=== PATIENT | female | born 1980 | race Caucasian/White ===

== ENCOUNTER 2017-11-02 10:06 | Outpatient (CLI) | payer OTHER ==
[2017-11-02 11:22] LABS: Hemoglobin 14.1 g/dL (12.0-16.0); Mean Corpuscular HGB CONC 34.8 g/dL (32.0-36.0); Mean Corpuscular Hemoglobin 32.4 pg (27.0-31.0); Mean Corpuscular Volume 93.1 fL (78.0-98.0); Mean Platelet Volume 7.4 fL (7.4-10.4); Platelet Count 193 thou/uL (130-400); RBC Distribution Width 11.5 % (11.5-14.5); Red Blood Cell (RBC) Count 4.36 mill/uL (4.20-5.40); White Blood Cell (WBC) Count 5.3 thou/uL (4.8-10.8)
[2017-11-02 11:28] LABS: BHCG - Serum Negative (NEGATIVE); Pregs Control Background? CLEAR/WHITE (CLR/WHITE); Pregs Control Bar Appear? YES (CONTROL BAR)
== END 2017-11-02 10:07 | disposition home or self-care (01) ==
LOC: LABBT 10:06
PROVIDERS: ATTEND Obstetrics & Gynecology
DX: Z01.812 Encounter for preprocedural laboratory examination (principal); N92.0 Excessive and frequent menstruation with regular cycle; N94.6 Dysmenorrhea, unspecified
CPT/HCPCS: 84703; 85027; 86850; 86900; 86901

== ENCOUNTER 2017-11-06 10:48 | Inpatient (IN) | payer OTHER ==
[2017-11-02 10:18] VITALS: BMI 34.4
--- NOTE | 2017-11-05 14:31 | HP ---
DATE OF ADMISSION: 11/06/2017 PRESENTING COMPLAINT: Dysmenorrhea, menorrhagia, anemia, leading to difficulty with work. Referred by [facility]. SCHEDULED PROCEDURE: Total laparoscopic hysterectomy, bilateral salpingectomy. HISTORY OF PRESENT ILLNESS: Ms. Matt is a 36-year-old 2, para 2, status post x1 for twins with eclampsia, vaginal delivery x1, with largest baby 8 pounds, 5 ounces via vaginal deliv alyssa. She has a long history of menorrhagia with menstrual cycles lasting up to 14 days, using 18 pad s per 24 hours during the heavy days. 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 Negative Pap smear per [facility]. Denies history of STDs. She has also had an ovarian cyst removed. PAST MEDICAL HISTORY: Hypertension, not on medications. PAST SURGICAL HISTORY: Tubal ligation and . ALLERGIES: MORPHINE. MEDICATIONS: OCPs and Tylenol #3. SOCIAL HISTORY: Positive for tobacco use, denies alcohol use or illicit drug use. FAMILY HISTORY/REVIEW OF SYSTEMS: Noncontributory. PHYSICAL EXAMINATION: GENERAL: White female. VITAL SIGNS: 5 feet 2, 240, BMI 43, blood pressure 118/80. HEENT: Within normal limits. LUNGS: Clear to auscultation bilaterally. HEART: Regular rate and rhythm. BREASTS: No masses bilaterally. ABDOMEN: Soft, nontender, no rebound or guarding. PELVIC: Vulva without lesions. Vagina without discharge. Cervix parous. Uterus anteverted, boggy, slightly tender, approximately 8-10-week size. Adnexa, no masses bilaterally. EXTREMITIES: Without clubbing, cyanosis, or edema. LABORATORY STUDIES: Pap smear per [facility] was negative. RADIOLOGY: Ultrasound reveals a uterus measuring 10 cm in greatest diameter with a couple of 1-2 cm fibroids intramurally and an inhomogeneous appearance consistent with adenomyosis. IMPRESSION: Dysmenorrhea, menorrhagia with probable adenomyosis and small fibroids. PLAN: Patient desires definitive surgical management. We will proceed with total laparoscopic hyste rectomy, bilateral salpingectomy with appropriate antibiotic and DVT prophylaxis at [facility] on 11/06/2017.
[2017-11-06] MEDS ORDERED: Gabapentin 300 MG CAP ONE (11:09)
[2017-11-06] MEDS ORDERED: CeleCOXIB 100 MG CAP ONE (11:10)
[2017-11-06] MEDS ORDERED: CEFAZOLIN/Water 2 GM/20 ML SYRINGE ONE (11:10)
[2017-11-06] MEDS ORDERED: Famotidine/PF 20 mg/2ml Vial ONE (11:10)
[2017-11-06] MEDS ORDERED: Bupivacaine HCl 0.5%/Epinephrine 1:200,000/PF 30 ml Vial ONE (11:26)
[2017-11-06] MEDS ORDERED: Midazolam HCl 2 mg/2 ml Vial ONE (11:27)
[2017-11-06] MEDS ORDERED: Fentanyl 250 MCG/5 ML VIAL ONE (11:30)
[2017-11-06] MEDS ORDERED: Ondansetron HCl/PF 4 MG/2 ML Vial ONE (11:57)
[2017-11-06] MEDS ORDERED: Dexamethasone 20 MG/5 ML VIAL ONE (11:57)
[2017-11-06] MEDS ORDERED: Glycopyrrolate 0.2 MG/ML 5 ML SYRINGE ONE (11:57)
[2017-11-06] MEDS ORDERED: Lidocaine 1% PF 5 ML VIAL ONE (11:57)
[2017-11-06] MEDS ORDERED: PROPOFOL 200 MG/20 ML VIAL ONE (11:57)
[2017-11-06] MEDS ORDERED: Ondansetron HCl/PF 4 MG/2 ML Vial IVP PRN ×2 (12:26→14:47)
[2017-11-06] MEDS ORDERED: Promethazine HCl 25 MG/ML VIAL IM PRN ×2 (12:26→14:47)
[2017-11-06] MEDS ORDERED: Promethazine HCl 25 MG/ML VIAL SLOW IVP PRN (12:26)
[2017-11-06] MEDS ORDERED: Fentanyl 100 MCG/2 ML VIAL ONE ×3 (13:26→13:59)
--- NOTE | 2017-11-06 13:40 | OP ---
DATE OF PROCEDURE: 11/06/2017 PREOPERATIVE DIAGNOSES: Dysmenorrhea, menorrhagia. POSTOPERATIVE DIAGNOSES: Dysmenorrhea, menorrhagia. PROCEDURE: Total laparoscopic hysterectomy, bilateral salpingectomy. SURGEON: Leon Omalley M.D. SYSTEM DISPATCHER: Za Meredith D.O. ANESTHESIA: General endotracheal. ESTIMATED BLOOD LOSS: 50 mL. COMPLICATIONS: None. MEDICATIONS: Two grams Ancef preincision. DVT PROPHYLAXIS: SCDs. OPERATIVE FINDINGS: 1. Boggy 8-10 week size uterus consistent with adenomyosis. 2. Normal appearing tubes and ovaries bilaterally status post BTL bilaterally. 3. Hemostasis with clear urine, counts correct at the end of the procedure. DISPOSITION: To the recovery room in good condition. DESCRIPTION OF OPERATIVE PROCEDURE: After obtaining proper informed consent, the patient was taken t o the operating room where general endotracheal anesthesia achieved without difficulty. The patient prepped and draped in dorsal lithotomy position in Ez stirrups. Weighted speculum placed in vagin a, cervix identified, grasped with single tooth tenaculum at 12 o'clock, sounded to 10 cm. PRASHANTH flor pulator with 4 cm vaginal fruit canner and 8 cm obturator was placed without difficulty. Speculum and tenaculum were removed. Webster catheter was placed. Newspaper Publisher changed his gloves, turned his attentio n to the abdominal portion of procedure. Five mL injected just below the umbilicus at the level of p revious laparoscopy scar, a 12 mm skin incision made. Veress needle placed inside the abdominal cavi ty with confirmation of entry into the peritoneal cavity via saline drop test. Insufflation was raymond ied out with carbon dioxide to a max pressure of 15, volume 3 liters. A 12 mm noncutting trocar was introduced in the abdominal cavity which confirmed entry into the peritoneal cavity. The patient was placed in steep Trendelenburg position and right upper quadrant histology assistant port 11 mm as well as da V inci histology assistant ports lateral to epigastric vessels 8 mm were placed under direct visualization. The da Yoav robot was docked. Monopolar scissors in the right hand and bipolar fenestrated forceps in t he left. An area of omentum that was adherent to a small hernia through the diastasis recti to the a nterior abdominal wall was noted be without bowel involvement, coagulated and transected and taken do wn. Pelvic organs were mobilized and the distal portion of the fallopian tube that was status post b ilateral partial salpingectomy was coagulated across the mesosalpinx and removed. After this was don e, the uteroovarian ligament was coagulated and transected. The broad and the round ligament and the n to the cardinals down to the level of the internal cervical os. Anteriorly the vesicouterine perit oneum was identified and incised off the lower uterine segment and cervix and the bladder dissected o ff the cervix and upper vagina, skeletonizing the uterine vessels both left and right, further skelet ization of the uterine vessels on the patient's right was performed and the vessels were coagulated. Transection was held off for later in the procedure. Attention was turned to the left side where ag ain the identical procedure was carried out removing the distal fallopian tube, coagulating the utero ovarian, the broad, the round, and the cardinals down to the level of the internal cervical os. Agai n, skeletization of the uterine vessels was carried out. These were coagulated posteriorly at 6 o'cl ock. The peritoneum was taken down off of the cul-de-sac of Vasile at the level of the cervix. The vagina was entered posteriorly at 6 o'clock and extended from 6 to 4 and 6 to 8. Anteriorly, the va denny was entered in the midline with the bladder well away and extended from 12 to 10 and 12 to 2. O n the patient's left the cardinal ligaments were coagulated and transected involving the uterine vess els with good hemostasis noted. Identical procedure was carried out on the patient's right. The spe cimen was freed at this point in time and pulled in the vagina to maintain pneumoperitoneum. [place] ar scissors were changed out for a Hendricks needle stage driver and the vaginal cuff grasped. Small areas of bleeding were rendered hemostatic using bipolar cautery and the cuff was closed with a two-layer clos ure using a 2-0 Stratafix PDS suture. Good hemostasis was noted. Ureters were identified, noted to be lateral to the surgical field. Tisseel was applied across all surgical pedicles and good hemostas is was noted. The da Yoav instruments were removed. The da Yoav robot undocked, the abdomen desuf flated of carbon dioxide. Trocars removed x4. Fascia reapproximated at the umbilicus using 0 Vicryl on a UR-5 needle and skin reapproximated x4 using 4-0 Monocryl and Dermabond. Specimen was removed from the vagina. The vagina was inspected and noted to be dry and without laceration. The patient w as awakened, extubated, and taken to recovery room in good condition.
[2017-11-06] MEDS ORDERED: Meperidine HCl/PF 25 MG/ML VIAL SLOW IVP PRN (14:47)
[2017-11-06] MEDS ORDERED: Zolpidem Tartrate 5 MG TAB PO PRN (14:47)
[2017-11-06] MEDS ORDERED: traMADol HCl 50 MG TAB PO PRN (14:47)
[2017-11-06] MEDS ORDERED: Simethicone Chewable 80 MG TAB PO PRN (14:47)
[2017-11-06] MEDS ORDERED: diphenhydrAMINE 25 MG CAP PO PRN (14:47)
[2017-11-06] MEDS: Sodium Chloride 0.9% 1,000 ML IV SCH (17:01)
[2017-11-06] MEDS: Acetaminophen 1,000 MG in Premix Bag 1 BAG IVPB SCH (17:33)
[2017-11-06] MEDS: traMADol HCl 50 MG TAB PO PRN (17:37)
[2017-11-06] MEDS: CeleCOXIB 100 MG CAP PO SCH (20:39)
[2017-11-06] MEDS: Gabapentin 300 MG CAP PO SCH (20:39)
[2017-11-07] MEDS: Acetaminophen 1,000 MG in Premix Bag 1 BAG IVPB SCH ×2 (00:04→05:33)
[2017-11-07] MEDS: Sodium Chloride 0.9% 1,000 ML IV SCH ×2 (00:45→09:50)
[2017-11-07 06:07] LABS: Hemoglobin 12.3 g/dL (12.0-16.0); Mean Corpuscular HGB CONC 34.6 g/dL (32.0-36.0); Mean Corpuscular Hemoglobin 32.3 pg (27.0-31.0); Mean Corpuscular Volume 93.2 fL (78.0-98.0); Mean Platelet Volume 7.7 fL (7.4-10.4); Platelet Count 149 thou/uL (130-400); RBC Distribution Width 11.5 % (11.5-14.5); White Blood Cell (WBC) Count 13.7 thou/uL (4.8-10.8)
[2017-11-07 07:30] VITALS: BP 127/73; TEMP 98.3
--- NOTE | 2017-11-07 07:32 | DIS ---
DATE OF SERVICE: 11/07/2017 DATE OF ADMISSION: 11/06/2017 DATE OF DISCHARGE: 11/07/2017 PRIMARY ADMITTING DIAGNOSES: Menorrhagia, dysmenorrhea. PRIMARY PROCEDURE: Total laparoscopic hysterectomy with bilateral salpingectomy with da Yoav robot- assist. SUMMARY OF HOSPITAL COURSE: The patient underwent the aforementioned surgical procedure at noon on 0 11/06/2017. She had estimated blood loss of 50 mL. She had an unremarkable postoperative course. Vi halle signs are stable with a T-max of 98.6. Good urine output, and a hematocrit postoperative day #1 at 35%. Physical exam revealed clear lungs, soft abdomen, nondistended. Bowel sounds positive. Inc isions intact. Perineum dry. Extremities are without clubbing, cyanosis, or edema. The patient is discharged home. She is going to continue on [place] and tramadol, which was prescribed preoperatively. She will have pelvic rest for at least 6 weeks and will follow up with me at [facility] in 4 weeks.
[2017-11-07] MEDS: CeleCOXIB 100 MG CAP PO SCH (09:31)
[2017-11-07] MEDS: Gabapentin 300 MG CAP PO SCH (09:31)
[2017-11-07] MEDS: traMADol HCl 50 MG TAB PO PRN (09:32)
== END 2017-11-07 09:54 | disposition home or self-care (01) | DRG 743 ==
LOC: SDC 10:48 → 3SE 14:57
PROVIDERS: ADMIT Obstetrics & Gynecology; ATTEND Obstetrics & Gynecology
PROC: 0UT94ZZ Resection of Uterus, Percutaneous Endoscopic Approach (ICD-10-PCS; principal; 2017-11-06)
PROC: 0UT74ZZ Resection of Bilateral Fallopian Tubes, Percutaneous Endoscopic Approach (ICD-10-PCS; 2017-11-06)
PROC: 8E0W4CZ Robotic Assisted Procedure of Trunk Region, Percutaneous Endoscopic Approach (ICD-10-PCS; 2017-11-06)
DX: N94.6 Dysmenorrhea, unspecified (principal); D25.1 Intramural leiomyoma of uterus; N92.0 Excessive and frequent menstruation with regular cycle; D64.9 Anemia, unspecified; I10 Essential (primary) hypertension; F17.210 Nicotine dependence, cigarettes, uncomplicated
CPT/HCPCS: 36415; 85027; 88307; A4216; J0131; J0670; J1100; J2001; J2175; J2250; J2405; J2704; J3010; S0028

== ENCOUNTER 2022-08-02 08:39 | Emergency (ER) | payer OTHER, SELFPAY ==
[2022-08-02 09:05] LABS: #Basophils 0.1 thou/uL (0.0-0.2); #Eosinphils 0.2 thou/uL (0.0-0.7); #Monocytes 0.6 thou/uL (0.11-0.59); #Neutrophils 6.8 thou/uL (1.40-6.50); %Basophils 0.5 % (0.0-1.0); %Eosinophils 2.1 % (0.0-10.0); %Monocytes 6.2 % (0.0-10.0); %Neutrophils 67.7 % (42.0-75.0); Hemoglobin 14.1 g/dL (12.0-16.0); Mean Corpuscular HGB CONC 32.6 g/dL (32.0-36.0); Mean Corpuscular Hemoglobin 30.7 pg (27.0-31.0); Mean Corpuscular Volume 93.9 fl (78.0-98.0); Mean Platelet Volume 10.2 fL (7.4-10.4); Platelet Count 214 10x3/uL (130-400); RBC Distribution Width 12.9 % (11.5-14.5)
[2022-08-02 09:22] LABS: BHCG - Serum Negative (NEGATIVE); Pregs Control Background? CLEAR/WHITE (CLR/WHITE); Pregs Control Bar Appear? YES (CONTROL BAR)
[2022-08-02 10:12] LABS: ALT (SGPT) 13 U/L (8-55); AST (SGOT) 11 U/L (5-34); Alkaline Phosphatase 67 U/L (40-110); Anion Gap 13 mmol/L (10-20); BUN (Urea Nitrogen) 19 mg/dL (7.0-18.7); Bilirubin, Total 0.2 mg/dL (0.2-1.2); Calc. Creatinine Clearance 0 mL/min (70-130); Calcium 9.1 mg/dL (7.8-10.44); Carbon Dioxide 22 mmol/L (22-29); Chloride 107 mmol/L (98-107); Estimated GFR 65; Glucose 110 mg/dL (70-105); Lipase 36 U/L (8-78); Potassium 4.7 mmol/L (3.5-5.1); Sodium 137 mmol/L (136-145)
[2022-08-02] MEDS ORDERED: Ketorolac Tromethamine 30 MG/ML VIAL ONE (11:12)
[2022-08-02 11:58] LABS: Bacteria/HPF 1+ HPF (None Seen); Bilirubin Negative (Negative); Blood, Urine 3+ (Negative); Clarity Clear (Clear); Glucose, Urine (Dipstick) Normal (Negative); Ketone, Urine Negative (Negative); Leukocyte 500 Leu/uL (Negative); Nitrite Negative (Negative); Protein, Urine (Dipstick) Negative (Neg-Trace); RBC/HPF 21-50 HPF (0-3); Specific Gravity, Urine 1.017 (1.002-1.036); Squamous Epithelial 0-3 HPF (0-3); Urobilinogen Normal mg/dL (Less than 2); WBC/HPF Greater than 50 HPF (0-3); pH, Urine 5.5 (5.0-9.0)
[2022-08-02] MEDS ORDERED: fentaNYL 50 mcg/mL 1 mL Vial ONE (13:31)
== END 2022-08-02 13:20 | disposition home or self-care (01) ==
LOC: ERS 08:39
DX: N83.202 Unspecified ovarian cyst, left side (principal); N30.00 Acute cystitis without hematuria; F17.210 Nicotine dependence, cigarettes, uncomplicated
CPT/HCPCS: 36415; 74176; 76856; 76857; 80053; 81003; 81015; 83690; 84703; 85025; 87086; 93976; 96374; 96375; J1885; J3010